=== PATIENT | female | born 1950 | race Caucasian/White ===

== ENCOUNTER 2021-10-05 00:37 | Observation (INO) | payer MEDICARE ==
[2021-10-05] MEDS ORDERED: Azithromycin 500 MG VIAL ONE (01:23)
[2021-10-05] MEDS ORDERED: cefTRIAXone\\ROCEPHIN 1 GM VIAL ONE (01:24)
[2021-10-05] MEDS ORDERED: Dexamethasone 10 MG/ML VIAL ONE (01:25)
[2021-10-05] MEDS ORDERED: Acetaminophen 500 MG TAB ONE (01:29)
[2021-10-05 01:31] LABS: #Monocytes 0.5 10x3/uL (0.0-1.1); #Neutrophils 7.4 10x3/uL (1.5-8.4); %Basophils 0.4 % (0.0-2.0); %Lymphocytes 6.1 % (18.0-47.0); %Monocytes 5.9 % (0.0-10.0); %Neutrophils 87.2 % (40.0-75.0); Hemoglobin 14.2 g/dL (12.0-15.5); Mean Corpuscular HGB CONC 32.9 g/dL (32.0-36.0); Mean Corpuscular Hemoglobin 30.6 pg (27.0-33.0); Mean Corpuscular Volume 92.9 fl (81.6-98.3); Mean Platelet Volume 10.6 fl (7.4-10.4); Platelet Count 208 10x3/uL (150-450); RBC Distribution Width 12.9 % (11.5-14.5); Red Blood Cell (RBC) Count 4.64 10x6/uL (3.90-5.03); White Blood Cell (WBC) Count 8.5 10x3/uL (3.5-10.5)
[2021-10-05 01:49] LABS: ALT (SGPT) 28 U/L (8-55); AST (SGOT) 31 U/L (5-34); Albumin 4.4 g/dL (3.4-4.8); Alkaline Phosphatase 56 U/L (40-110); Anion Gap 15 mmol/L (10-20); BUN (Urea Nitrogen) 8 mg/dL (9.8-20.1); Bilirubin, Total 0.4 mg/dL (0.2-1.2); Calc. Creatinine Clearance 0 mL/min (70-130); Carbon Dioxide 22 mmol/L (23-31); Chloride 101 mmol/L (98-107); Globulin 2.7 g/dL (2.4-3.5); Glucose 143 mg/dL (83-110); Magnesium 1.7 mg/dL (1.6-2.6); Potassium 4.4 mmol/L (3.5-5.1); Protein, Total 7.1 g/dL (5.8-8.1); Sodium 134 mmol/L (136-145)
[2021-10-05 02:48] LABS: SARS-CoV-2 NAA Rapid Test Not Detected (NotDetected)
[2021-10-05 03:39] VITALS: BMI 33.0
[2021-10-05] MEDS ORDERED: Acetaminophen 325 MG TAB PO PRN (06:08)
[2021-10-05 06:37] LABS: Magnesium 1.7 mg/dL (1.6-2.6)
[2021-10-05] MEDS: Budesonide 0.5 MG/2 ML NEB NEB SCH ×2 (08:11→18:40)
[2021-10-05] MEDS ORDERED: Benzonatate 100 MG CAP PO PRN (08:52)
[2021-10-05] MEDS ORDERED: Cyclobenzaprine 10 MG TAB PO SCH (09:00)
[2021-10-05] MEDS: Enoxaparin Sodium 40 MG/0.4 ML SYRINGE SC SCH (09:23)
[2021-10-05] MEDS: FLUoxetine HCl 20 MG CAP PO SCH (09:24)
[2021-10-05] MEDS: methylPREDNISolone Sod Succ 40 MG VIAL IVP SCH ×2 (09:24→18:05)
[2021-10-05] MEDS: guaiFENesin ER 600 MG TAB PO SCH ×2 (09:24→23:09)
[2021-10-05] MEDS ORDERED: ALPRAZolam 0.25 MG TAB PO PRN (12:53)
[2021-10-05] MEDS ORDERED: ALPRAZolam 0.25 MG TAB PO SCH (13:00)
[2021-10-05] MEDS ORDERED: Ketorolac Tromethamine 30 MG/ML VIAL IVP SCH (13:00)
[2021-10-05] MEDS ORDERED: Lidocaine 5% Patch TD SCH (13:15)
[2021-10-05] MEDS: Lidocaine 5% Patch TD SCH (13:46)
[2021-10-05] MEDS ORDERED: Cyclobenzaprine 10 MG TAB PO PRN (17:00)
[2021-10-05 17:05] LABS: Legionella Urinary Ag Negative (Negative); Strep pneumo Urine Ag NEGATIVE (NEGATIVE)
[2021-10-06] MEDS ORDERED: Cepastat Lozenges 1 LOZ PO PRN (00:06)
[2021-10-06] MEDS ORDERED: Transdermal Patch Removal TOP SCH (01:30)
[2021-10-06] MEDS ORDERED: cefTRIAXone\\ROCEPHIN 1 GM in Sodium Chloride 0.9% 100 ML IVPB SCH (01:30)
[2021-10-06] MEDS: methylPREDNISolone Sod Succ 40 MG VIAL IVP SCH ×2 (01:52→10:06)
[2021-10-06] MEDS ORDERED: Azithromycin 500 MG in Sodium Chloride 0.9% 250 ML 250 ML IVPB SCH (02:00)
[2021-10-06 04:59] LABS: Anion Gap 12 mmol/L (10-20); BUN (Urea Nitrogen) 13 mg/dL (9.8-20.1); Calc. Creatinine Clearance 95 mL/min (70-130); Calcium 8.4 mg/dL (7.8-10.44); Carbon Dioxide 21 mmol/L (23-31); Chloride 99 mmol/L (98-107); Glucose 169 mg/dL (83-110); Hemoglobin 11.7 g/dL (12.0-15.5); Mean Corpuscular HGB CONC 33.4 g/dL (32.0-36.0); Mean Corpuscular Hemoglobin 30.7 pg (27.0-33.0); Mean Corpuscular Volume 91.9 fl (81.6-98.3); Mean Platelet Volume 10.8 fl (7.4-10.4); Platelet Count 187 10x3/uL (150-450); Potassium 3.3 mmol/L (3.5-5.1); RBC Distribution Width 13.2 % (11.5-14.5); Red Blood Cell (RBC) Count 3.81 10x6/uL (3.90-5.03); Sodium 129 mmol/L (136-145); White Blood Cell (WBC) Count 16.9 10x3/uL (3.5-10.5)
[2021-10-06 05:42] LABS: MDiff Complete? YES
[2021-10-06 05:43] LABS: Platelet Morphology Comment Appears Adequate; RBC Morphology Normal
[2021-10-06 05:45] LABS: Band 7 % (5-11); Lymphocytes 3 % (21-51); Monocytes 6 % (0-10); Neutrophil 84 % (42-75)
[2021-10-06] MEDS: Budesonide 0.5 MG/2 ML NEB NEB SCH (07:35)
[2021-10-06] MEDS ORDERED: Lidocaine 5% Patch TD SCH (09:00)
[2021-10-06] MEDS: Enoxaparin Sodium 40 MG/0.4 ML SYRINGE SC SCH (10:03)
[2021-10-06] MEDS: guaiFENesin ER 600 MG TAB PO SCH (10:06)
[2021-10-06] MEDS: FLUoxetine HCl 20 MG CAP PO SCH (10:06)
[2021-10-06 13:13] VITALS: BP 94/50; TEMP 97.6
[2021-10-06] MEDS: Lidocaine 5% Patch TD SCH (13:57)
== END 2021-10-06 15:08 | disposition home or self-care (01) ==
LOC: CSHERS 00:37 → CSHTELE 03:13 → INTOOBSV 03:13
PROVIDERS: ADMIT Family Medicine; ATTEND Internal Medicine
DX: J44.1 Chronic obstructive pulmonary disease with (acute) exacerbation (principal); J96.01 Acute respiratory failure with hypoxia; J22 Unspecified acute lower respiratory infection; I25.10 Atherosclerotic heart disease of native coronary artery without angina pectoris; F41.1 Generalized anxiety disorder; E66.9 Obesity, unspecified; Z68.33 Body mass index [BMI] 33.0-33.9, adult; Z87.891 Personal history of nicotine dependence; Z79.899 Other long term (current) drug therapy; Z88.5 Allergy status to narcotic agent; Z95.1 Presence of aortocoronary bypass graft; Z20.822 Contact with and (suspected) exposure to COVID-19
CPT/HCPCS: 0240U; 71045; 80048; 80053; 83605; 83735; 83880; 84484; 85025; 87040; 87449; 87899; 93005; 94640; 94760; 96365; 96367; 96372; J0456; J0696; J1100; J1650; J1885; J2920; J3490; J7050; J7620; J7626